=== PATIENT | male | born 1970 | race Caucasian/White ===

== ENCOUNTER 2022-06-18 17:24 | Emergency (ER) | payer BC ==
[~2022-06-18] VITALS: Ht 193 cm; Wt 97.5 kg
[2022-06-18] MEDS ORDERED: LIDOCAINE HCL 2% 20 ML VIAL TP ONE (18:45)
[2022-06-18] MEDS ORDERED: TDAP DIPH,PERTUSS,TET VAC/PF 0.5 ML DISP.SYRIN IM ONE ×2 (18:45→19:51)
[2022-06-18] MEDS ORDERED: LIDOCAINE HCL 2% 20 ML VIAL ONE (18:47)
--- NOTE | 2022-06-18 19:00 | NUR ---
Dr. Ramon at bedside for MSE and suture. Lidocaine 2% handed out to . Suture supplies ready at bedside.
--- NOTE | 2022-06-18 19:45 | NUR ---
Patient discharged to home in stable condition. Written and verbal after care instructions given. Patient verbalizes understanding of instructions. Stressed follow up or return to ER for worsening s/s. patient out of E.R. with steady gait, vital signs stable, no acute signs of distress and all belongings were taken with him. Provided him with wound care supplies.
[2022-06-18 19:47] VITALS: BP 122/74
== END 2022-06-18 19:47 | disposition home or self-care (01) ==
LOC: ER 17:30
DX: S61.212A Laceration without foreign body of right middle finger without damage to nail, initial encounter (principal); W26.8XXA Contact with other sharp object(s), not elsewhere classified, initial encounter; Y92.89 Other specified places as the place of occurrence of the external cause; Z88.0 Allergy status to penicillin
CPT/HCPCS: 90715; A4663; J3490